=== PATIENT | female | born 1940 | race Caucasian/White ===

== ENCOUNTER 2016-11-10 11:31 | Outpatient (CLI) | payer BC | END 2016-11-10 11:32 | disposition home or self-care (01) | DX: E78.2 Mixed hyperlipidemia (principal); Z79.899 Other long term (current) drug therapy; N18.9 Chronic kidney disease, unspecified; I12.9 Hypertensive chronic kidney disease with stage 1 through stage 4 chronic kidney disease, or unspecified chronic kidney disease ==

== ENCOUNTER 2016-11-23 13:00 | Outpatient (CLI) | payer BC | END 2016-11-23 13:01 | disposition home or self-care (01) | DX: Z13.820 Encounter for screening for osteoporosis (principal); M81.0 Age-related osteoporosis without current pathological fracture; Z78.0 Asymptomatic menopausal state ==

== ENCOUNTER 2018-02-24 16:18 | Emergency (ER) | payer OTHER, BC ==
[2018-02-24 16:41] VITALS: BP 145/75
[2018-02-24] MEDS ORDERED: TETANUS/DIPHTHERIA/PERTUSSIS 0.5 ML SYRINGE IM ONE (17:27)
[2018-02-24] MEDS ORDERED: BACITRACIN OINT TOP STA (17:47)
--- NOTE | 2018-02-24 17:50 | ED Physician Documentation ---
PD HPI UPPER EXT INJURY - Stated complaint Stated Complaint: R FINGER INJ - Chief complaint Chief Complaint: Ext Problem - History obtained from History obtained from: Patient - History of Present Illness Location: Right, Finger (middle) Type of injury: Laceration - Additonal information Additional information: The patient is a 77-year-old female who cut her right middle finger when it got caught in the window as her was rolling the automatic window up in their car. She is right hand dominant. Last tetanus booster was more than 5 years ago. Review of Systems Skin: reports: Laceration (s) Musculoskeletal: denies: Joint pain Neurologic: denies: Focal weakness, Numbness PD PAST MEDICAL HISTORY - Past Medical History Cardiovascular: Hypertension Respiratory: COPD - Past Surgical History General: Hiatal hernia repair /LAB ASSISTANT: Hysterectomy HEENT: Cataracts - Present Medications Home Medications: Ambulatory Orders Medication Instructions Recorded Confirmed Albuterol Sulfate [Proventil Hfa 1 - 2 puffs IH Q4H PRN #1 06/04/16 Inhaler] [email or web address] Levofloxacin [Levaquin] 750 mg PO DAILY #10 tablet 06/04/16 - Allergies Allergies/Adverse Reactions: Allergies Allergy/AdvReac Type Severity Reaction Status Date / Time latex Allergy Unknown Verified 02/24/18 16:35 - Social History Does the pt smoke?: No Smoking Status: Former smoker Does the pt drink ETOH?: No - Immunizations Immunizations are current?: No PD ED PE NORMAL - Vitals Vital signs reviewed: Yes (mild systolic hypertension initially.) - General General: Alert and oriented X 3, Well developed/nourished - HEENT HEENT: Atraumatic - Respiratory Respiratory: No respiratory distress - Derm Derm: No rash - Extremities Extremities: Other (There is a 1.5 cm laceration on the volar pad of her right middle finger, distal to the PIP joint. There is no tenderness to palpation of the DIP, PIP, or MCP joints, and she demonstrates full flexion and extension against resistance. Distal neurovascular is intact.) - Neuro Neuro: Alert and oriented X 3, No motor deficit, No sensory deficit Results - Vitals Vitals: Oxygen O2 Source Room air Procedures - Laceration (location) right middle finger Length in cm: 1.5 Wound type: Curved, Flap, Clean Neurovascular status: Sensory intact, Motor intact, Vascular intact Anesthesia: Lidocaine 1% with epi Wound Preparation: Hibiclens, Irrigated copiously NS, Wound explored, To the base. No: FB identified Skin layer closure: Nylon, Interrupted, Size #-0 - enter number (5), Sutures - enter # (4) Other: Patient tolerated well, No complications, Neurovascular intact, Dressing applied, Tetanus booster given Complexity: Simple PD MEDICAL DECISION MAKING - ED course Complexity details: d/w patient, d/w family (The patient's presentation is significant for he 1.5 cm laceration on her right middle finger. There is no clinical evidence of bone, joint, nerve, or vascular involvement. Treatment in the emergency department included local anesthetic, thorough cleaning, and suture repair with 5-0 nylon. Antibiotic ointment and wound dressing was applied. Tetanus booster was administered. I discussed with her and her the expected course of healing, timing for suture removal, as well as potentially worrisome signs or symptoms that should prompt reevaluation in the emergency department.) - Sepsis Event Vital Signs: Oxygen O2 Source Room air Departure - Departure Disposition: 01 Home, Self Care Clinical Impression: Finger laceration Qualifiers: Encounter type: initial encounter Finger: middle finger Damage to nail status: without damage Foreign body presence: without foreign body Laterality: right Qualified Code(s): S61.212A - Laceration without foreign body of right middle finger without damage to nail, initial encounter Condition: Stable Instructions: ED Laceration Hand Follow-Up: Juan M Marshall MD [Primary Care Provider] - Comments: Keep the wound clean, and apply antibiotic ointment daily. He can use Tylenol or ibuprofen as needed for discomfort. Follow-up for suture removal in about 10 days. Follow-up sooner if you develop any sign of infection, or otherwise worsening symptoms. Discharge Date/Time: 02/24/18 18:06
== END 2018-02-24 18:06 | disposition home or self-care (01) ==
LOC: ED 16:18
DX: S61.212A Laceration without foreign body of right middle finger without damage to nail, initial encounter (principal); I10 Essential (primary) hypertension; Z87.891 Personal history of nicotine dependence; W23.0XXA Caught, crushed, jammed, or pinched between moving objects, initial encounter; Y92.810 Car as the place of occurrence of the external cause
CPT/HCPCS: 12001; 90471; 90715; 99282; 99283; A9270